=== PATIENT | male | born 1990 | race African-American/Black ===

== ENCOUNTER 2018-08-21 16:34 | Inpatient (IN) | payer MEDICAID ==
[~2018-08-21] VITALS: Ht 175.3 cm; Wt 80.9 kg
[2018-08-21] MEDS ORDERED: PREDNISONE 20MG TABLET PO STA (16:51)
[2018-08-21] MEDS ORDERED: IPRATROPIUM/ALBUTEROL 0.5-3(2.5)MG/3ML NEB HHN ONE (17:00)
[2018-08-21] MEDS ORDERED: LEVOFLOXACIN 500MG TABLET PO ONE (17:00)
[2018-08-21] MEDS ORDERED: ONDANSETRON HCL 4MG/2ML INJ IV STA (17:17)
[2018-08-21] MEDS ORDERED: MORPHINE SULFATE 4 MG/ML CPJ (NOT FOR IM USE) IV STA (17:17)
[2018-08-21] MEDS ORDERED: SODIUM CHLORIDE 0.9% 1,000 ML IV ONE (17:17)
[2018-08-21] MEDS ORDERED: LORAZEPAM 2MG/ML CPJ IV ONE (17:30)
[2018-08-21] MEDS ORDERED: KETAMINE HCL 50 MG/ML 10ML IV ONE (17:45)
[2018-08-21] MEDS ORDERED: LIDOCAINE HCL/PF 1% 10 MG/ML 5ML VIAL IJ ONE (17:45)
[2018-08-21 17:47] LABS: BASOPHILS % 0.2 % (0.0-2.0); EOSINOPHILS % 0.7 % (0.0-5.0); HEMATOCRIT. 47.2 % (42.0-52.0); LYMPHOCYTES % 13.9 % (20.0-50.0); MEAN CORPUSCULAR HEMOGLOBIN 32.6 pg (28.0-32.0); MEAN CORPUSCULAR VOLUME 96.1 fL (80.0-94.0); MEAN PLATELET VOLUME 8.6 fl (7.4-10.4); MONOCYTES % 5.4 % (2.0-8.0); NEUTROPHILS % 79.8 % (40.0-76.0); PLATELET 241 x1000/uL (130-400); RED BLOOD CELL COUNT 4.91 mill/uL (4.7-6.1); RED CELL DISTRIBUTION WIDTH 12.7 % (11.6-14.6)
[2018-08-21] MEDS ORDERED: MIDAZOLAM HCL 2 MG/2 ML VIAL ONE (17:51)
[2018-08-21 17:53] LABS: CHLORIDE 105 mEq/L (98-107)
[2018-08-21 17:54] LABS: PARTIAL THROMBOPLASTIN TIME 24.8 sec (23.4-31.0); PROTHROMBIN TIME 10.7 sec (9.6-11.0)
[2018-08-21 17:57] LABS: ETHANOL BLOOD < 10 mg/dL
[2018-08-21] MEDS ORDERED: CEFAZOLIN 1000MG PREMIX 50 ML IV ONE (18:15)
[2018-08-21] MEDS ORDERED: MIDAZOLAM HCL 2 MG/2 ML VIAL IV ONE (18:15)
[2018-08-21] MEDS ORDERED: MORPHINE SULFATE 4 MG/ML CPJ (NOT FOR IM USE) IV ONE (18:45)
[2018-08-21] MEDS ORDERED: ONDANSETRON HCL 4MG/2ML INJ IV ONE (18:45)
[2018-08-21] MEDS ORDERED: KETOROLAC 30MG/ML VIAL IV ONE (18:45)
[2018-08-21] MEDS ORDERED: ZOLPIDEM TARTRATE 5MG TABLET PO PRN (19:15)
[2018-08-21] MEDS ORDERED: ACETAMINOPHEN 325MG TABLET PO PRN (19:15)
[2018-08-21] MEDS: MORPHINE SULFATE 4 MG/ML CPJ (NOT FOR IM USE) IV PRN (19:56)
[2018-08-21 22:30] VITALS: BP 137/82
[2018-08-22] VITALS (7 sets, daily range): BP systolic 119–142; BP diastolic 60–100
[2018-08-22] MEDS: METHYLPREDNISOLONE SOD SUCC 40 MG/ML VIAL IV SCH ×3 (00:45→15:49)
[2018-08-22 07:02] LABS: BASOPHILS % 0.2 % (0.0-2.0); EOSINOPHILS % 0.1 % (0.0-5.0); HEMATOCRIT. 46.5 % (42.0-52.0); HEMOGLOBIN. 15.9 g/dL (14.0-18.0); LYMPHOCYTES % 9.5 % (20.0-50.0); MEAN CORPUSCULAR HEMOGLOBIN 32.8 pg (28.0-32.0); MEAN PLATELET VOLUME 8.9 fl (7.4-10.4); MONOCYTES % 1.5 % (2.0-8.0); NEUTROPHILS % 88.7 % (40.0-76.0); PLATELET 229 x1000/uL (130-400); RED BLOOD CELL COUNT 4.84 mill/uL (4.7-6.1); RED CELL DISTRIBUTION WIDTH 12.5 % (11.6-14.6)
[2018-08-22 07:08] LABS: CHLORIDE 105 mEq/L (98-107)
[2018-08-22] MEDS: IPRATROPIUM BROMIDE (0.02%) 0.5MG/2.5ML NEB HHN SCH ×4 (07:08→19:58)
[2018-08-22] MEDS: MORPHINE SULFATE 4 MG/ML CPJ (NOT FOR IM USE) IV PRN ×3 (09:29→21:14)
[2018-08-22] MEDS: MONTELUKAST SODIUM 10MG TABLET PO SCH (17:57)
[2018-08-22] MEDS: HYDROCODONE/ACETAMINOPHEN 5/325MG TABLET PO PRN (17:57)
[2018-08-22] MEDS: ONDANSETRON HCL 4MG/2ML INJ IV PRN (18:28)
[2018-08-23] VITALS (8 sets, daily range): BP systolic 102–144; BP diastolic 53–96
[2018-08-23] MEDS: IPRATROPIUM BROMIDE (0.02%) 0.5MG/2.5ML NEB HHN SCH ×6 (00:07→22:19)
[2018-08-23] MEDS: METHYLPREDNISOLONE SOD SUCC 40 MG/ML VIAL IV SCH ×4 (00:46→23:03)
[2018-08-23] MEDS: MORPHINE SULFATE 4 MG/ML CPJ (NOT FOR IM USE) IV PRN ×3 (03:50→15:19)
[2018-08-23] MEDS: HYDROCODONE/ACETAMINOPHEN 5/325MG TABLET PO PRN ×2 (12:04→23:04)
[2018-08-23] MEDS: MONTELUKAST SODIUM 10MG TABLET PO SCH (17:15)
[2018-08-23] MEDS ORDERED: LIDOCAINE HCL/EPINEPHRINE 1%-EPI 1:100,000 20 ML VIAL IJ SCH (17:45)
[2018-08-23] MEDS ORDERED: LORAZEPAM 2MG/ML CPJ IV NR (18:00)
[2018-08-23] MEDS ORDERED: MORPHINE SULFATE 10 MG/ML CPJ IV NR (18:00)
[2018-08-23] MEDS ORDERED: ETOMIDATE 2MG/ML 10ML VIAL IV NR (18:15)
[2018-08-24] VITALS (10 sets, daily range): BP systolic 107–147; BP diastolic 58–81
[2018-08-24] MEDS: IPRATROPIUM BROMIDE (0.02%) 0.5MG/2.5ML NEB HHN SCH ×6 (02:03→21:01)
[2018-08-24 05:56] LABS: HEMOGLOBIN. 15.7 g/dL (14.0-18.0); MEAN CORPUSCULAR HEMOGLOBIN 32.7 pg (28.0-32.0); MEAN CORPUSCULAR VOLUME 95.8 fL (80.0-94.0); MEAN PLATELET VOLUME 9.2 fl (7.4-10.4); PLATELET 255 x1000/uL (130-400); RED CELL DISTRIBUTION WIDTH 12.4 % (11.6-14.6)
[2018-08-24] MEDS: MORPHINE SULFATE 4 MG/ML CPJ (NOT FOR IM USE) IV PRN ×2 (06:00→17:50)
[2018-08-24 06:18] LABS: CHLORIDE 100 mEq/L (98-107)
[2018-08-24] MEDS: HYDROCODONE/ACETAMINOPHEN 5/325MG TABLET PO PRN ×3 (08:13→21:54)
[2018-08-24] MEDS: METHYLPREDNISOLONE SOD SUCC 40 MG/ML VIAL IV SCH ×2 (08:13→17:47)
[2018-08-24 10:51] LABS: PLATELET ESTIMATE NORMAL
[2018-08-24] MEDS: MONTELUKAST SODIUM 10MG TABLET PO SCH (17:48)
[2018-08-24] MEDS: POLYETHYLENE GLYCOL 3350 (17GM) 1 DOSE PACK PO PRN (22:45)
[2018-08-25] VITALS (7 sets, daily range): BP systolic 114–143; BP diastolic 66–83
[2018-08-25] MEDS: METHYLPREDNISOLONE SOD SUCC 40 MG/ML VIAL IV SCH ×3 (00:06→16:11)
[2018-08-25] MEDS: IPRATROPIUM BROMIDE (0.02%) 0.5MG/2.5ML NEB HHN SCH ×6 (00:33→20:43)
[2018-08-25] MEDS: HYDROCODONE/ACETAMINOPHEN 5/325MG TABLET PO PRN ×2 (05:29→16:18)
[2018-08-25 06:02] LABS: HEMATOCRIT. 46.5 % (42.0-52.0); HEMOGLOBIN. 15.7 g/dL (14.0-18.0); MEAN CORPUSCULAR HEMOGLOBIN 32.3 pg (28.0-32.0); MEAN CORPUSCULAR VOLUME 95.6 fL (80.0-94.0); MEAN PLATELET VOLUME 8.6 fl (7.4-10.4); PLATELET 255 x1000/uL (130-400); RED BLOOD CELL COUNT 4.86 mill/uL (4.7-6.1); RED CELL DISTRIBUTION WIDTH 12.5 % (11.6-14.6)
[2018-08-25 10:31] LABS: PLATELET ESTIMATE NORMAL
[2018-08-25] MEDS: MONTELUKAST SODIUM 10MG TABLET PO SCH (16:11)
[2018-08-25] MEDS: POLYETHYLENE GLYCOL 3350 (17GM) 1 DOSE PACK PO PRN (20:33)
[2018-08-25] MEDS: MORPHINE SULFATE 4 MG/ML CPJ (NOT FOR IM USE) IV PRN (22:12)
[2018-08-26] VITALS: BP 122/70
[2018-08-26] MEDS: IPRATROPIUM BROMIDE (0.02%) 0.5MG/2.5ML NEB HHN SCH ×6 (00:24→20:41)
[2018-08-26] MEDS: METHYLPREDNISOLONE SOD SUCC 40 MG/ML VIAL IV SCH ×3 (00:34→16:53)
[2018-08-26] MEDS: HYDROCODONE/ACETAMINOPHEN 5/325MG TABLET PO PRN ×2 (01:03→19:31)
[2018-08-26] MEDS: MORPHINE SULFATE 4 MG/ML CPJ (NOT FOR IM USE) IV PRN ×3 (05:54→16:54)
[2018-08-26 06:45] LABS: HEMATOCRIT. 47.7 % (42.0-52.0); HEMOGLOBIN. 16.4 g/dL (14.0-18.0); MEAN CORPUSCULAR HEMOGLOBIN 32.8 pg (28.0-32.0); MEAN CORPUSCULAR VOLUME 95.2 fL (80.0-94.0); MEAN PLATELET VOLUME 8.6 fl (7.4-10.4); PLATELET 249 x1000/uL (130-400); RED BLOOD CELL COUNT 5.02 mill/uL (4.7-6.1); RED CELL DISTRIBUTION WIDTH 12.3 % (11.6-14.6)
[2018-08-26 08:00] VITALS: BP 122/75
[2018-08-26 10:53] LABS: PLATELET ESTIMATE NORMAL
[2018-08-26 11:33] VITALS: BP 122/60
[2018-08-26 16:00] VITALS: BP 121/79
[2018-08-26] MEDS: MONTELUKAST SODIUM 10MG TABLET PO SCH (16:54)
[2018-08-26 20:00] VITALS: BP 121/62
[2018-08-27] VITALS: BP 129/72
[2018-08-27] MEDS: MORPHINE SULFATE 4 MG/ML CPJ (NOT FOR IM USE) IV PRN ×4 (00:17→20:34)
[2018-08-27] MEDS: IPRATROPIUM BROMIDE (0.02%) 0.5MG/2.5ML NEB HHN SCH ×6 (00:49→19:57)
[2018-08-27 04:00] VITALS: BP 133/81
[2018-08-27] MEDS ORDERED: HYDROCODONE/ACETAMINOPHEN 5/325MG TABLET PO PRN (05:15)
[2018-08-27] MEDS: ONDANSETRON HCL 4MG/2ML INJ IV PRN (05:18)
[2018-08-27] MEDS ORDERED: KETOROLAC 30MG/ML VIAL IM SCH (07:15)
[2018-08-27 08:09] VITALS: BP 124/80
[2018-08-27] MEDS ORDERED: PREDNISONE 20MG TABLET PO SCH (09:00)
[2018-08-27 12:00] VITALS: BP 123/70
[2018-08-27] MEDS ORDERED: MORPHINE SULFATE 4 MG/ML CPJ (NOT FOR IM USE) IV NR (13:40)
[2018-08-27 16:00] VITALS: BP 119/67
[2018-08-27] MEDS ORDERED: HYDROCODONE/ACETAMINOPHEN 5/325MG TABLET ONE (17:17)
[2018-08-27] MEDS: MONTELUKAST SODIUM 10MG TABLET PO SCH (17:18)
[2018-08-27] MEDS: HYDROCODONE/ACETAMINOPHEN 5/325MG TABLET PO PRN (18:24)
[2018-08-27 20:00] VITALS: BP 122/79
[2018-08-27] MEDS: POLYETHYLENE GLYCOL 3350 (17GM) 1 DOSE PACK PO PRN (20:50)
[2018-08-28] VITALS: BP 125/72
[2018-08-28] MEDS: HYDROCODONE/ACETAMINOPHEN 5/325MG TABLET PO PRN ×2 (00:06→06:16)
[2018-08-28] MEDS: IPRATROPIUM BROMIDE (0.02%) 0.5MG/2.5ML NEB HHN SCH ×5 (00:17→16:16)
[2018-08-28 04:00] VITALS: BP 128/81
[2018-08-28] MEDS: MORPHINE SULFATE 4 MG/ML CPJ (NOT FOR IM USE) IV PRN ×2 (04:16→11:24)
[2018-08-28] MEDS ORDERED: CYCLOBENZAPRINE 10MG TABLET PO PRN (09:15)
[2018-08-28] MEDS ORDERED: DOCUSATE SODIUM 250MG CAPSULE PO PRN (10:00)
[2018-08-28] MEDS ORDERED: LACTULOSE 20G/30ML UDC PO NR (10:00)
[2018-08-28 14:43] VITALS: BP 126/77
[2018-08-28] MEDS: MONTELUKAST SODIUM 10MG TABLET PO SCH (16:10)
[2018-09-01] MEDS ORDERED: HYDROCODONE/ACETAMINOPHEN 5/325MG TABLET PO PRN (05:15)
== END 2018-08-28 18:25 | disposition home or self-care (01) | DRG 143 ==
LOC: ER 16:34 → 8WST 18:40 → EDBEDREQ 18:44 → ENRESERV 20:47 → 5EST 08-23 21:08 → 8WST 08-24 14:47
PROVIDERS: ADMIT Internal Medicine; ATTEND Internal Medicine
PROC: 0W9900Z Drainage of Right Pleural Cavity with Drainage Device, Open Approach (ICD-10-PCS; principal; 2018-08-27)
DX: J93.9 Pneumothorax, unspecified (principal); J96.01 Acute respiratory failure with hypoxia; J45.909 Unspecified asthma, uncomplicated; F17.210 Nicotine dependence, cigarettes, uncomplicated; F12.90 Cannabis use, unspecified, uncomplicated; T40.2X5A Adverse effect of other opioids, initial encounter; Y92.89 Other specified places as the place of occurrence of the external cause; K59.03 Drug induced constipation; Z71.6 Tobacco abuse counseling; J43.9 Emphysema, unspecified; I31.9 Disease of pericardium, unspecified
CPT/HCPCS: 32551; 36415; 71045; 71250; 80048; 80320; 84484; 93005; 93970; 94640; 96374; 96375; 96376; 99152; 99285; J0690; J1885; J2060; J2250; J2270; J2405; J2920; J3490; J7030; J7512; J7620; G0480